=== PATIENT | female | born 1985 | race Caucasian/White ===

== ENCOUNTER → 2017-07-13 | Outpatient (CLI) | payer BC | LOC: CIMAGING 13:07 | PROVIDERS: ATTEND Family Medicine | DX: R07.9 Chest pain, unspecified (principal); Z86.19 Personal history of other infectious and parasitic diseases | CPT/HCPCS: 71020-PO ==

== ENCOUNTER → 2017-07-30 | Outpatient (CLI) | payer BC | LOC: CIMAGING 09:03 | PROVIDERS: ATTEND Physician Assistant | DX: B19.10 Unspecified viral hepatitis B without hepatic coma (principal) | CPT/HCPCS: 76705-PO ==